=== PATIENT | female | born 1970 | race Caucasian/White ===

== ENCOUNTER → 2019-12-14 | Outpatient (CLI) | payer BC ==
[~2019-12-14] MED LIST: ASCO1TAB15 PO; LEVO75TA5 PO; MV-M1TAB25 PO; TRAZ-175 PO
[2019-12-14 14:21] LABS: BASOPHILS # (AUTO) 0.03 x10^3/uL (0-0.1); BASOPHILS % (AUTO) 0 % (0-1); EOSINOPHILS # (AUTO) 0.15 x10^3/uL (0-0.4); EOSINOPHILS % (AUTO) 2 % (1-7); LYMPHOCYTES % (AUTO) 33 % (22-44); MD NO; MEAN CORPUSCULAR HEMOGLOBIN 30.3 pg (27.0-34.8); MEAN CORPUSCULAR HGB CONC 33.2 g/dL (32.4-35.8); MEAN CORPUSCULAR VOLUME 91.1 fL (80-100); MEAN PLATELET VOLUME 7.5 fL (7.4-10.4); MONOCYTES # (AUTO) 0.37 x10^3/uL (0.2-0.8); MONOCYTES % (AUTO) 6 % (2-9); NEUTROPHILS # (AUTO) 4.02 x10^3/uL (1.8-6.8); NEUTROPHILS % (AUTO) 59 % (42-75); PLATELET COUNT 283 x10^3/uL (130-400); RED BLOOD COUNT 4.76 x10^6/uL (3.82-5.3); RED CELL DISTRIBUTION WIDTH 13.1 % (9.6-15.2)
[2019-12-14 14:24] LABS: MICROSCOPIC NOT IND
[2019-12-14 14:27] LABS: INTERNATIONAL NORMALIZED RATIO 0.93 (0.93-1.1); PROTHROMBIN TIME 9.8 Seconds (9.6-11.5)
[2019-12-14 14:28] LABS: CULTURE INDICATED? NO
[2019-12-14 14:29] LABS: ALANINE AMINOTRANSFERASE 14 U/L (12-78); ALBUMIN 3.8 g/dL (3.4-5.0); ANION GAP 7 mmol/L (5-15); CALCIUM 9.3 mg/dL (8.5-10.1); CHLORIDE 107 mmol/L (98-107)
[2019-12-14 14:32] LABS: ALKALINE PHOSPHATASE 55 U/L (45-117); BILIRUBIN,TOTAL 0.5 mg/dL (0.2-1.0); CREATININE 0.92 mg/dL (0.55-1.02); TOTAL PROTEIN 7.6 g/dL (6.4-8.2)
== END | disposition home or self-care (01) ==
LOC: STAR 12:48
PROVIDERS: ATTEND Orthopaedic Surgery Orthopaedic Surgery of the Spine
DX: Z01.818 Encounter for other preprocedural examination (principal)
CPT/HCPCS: 36415; 71046; 80053; 81003; 85025; 85610; 85730; 93005

== ENCOUNTER 2019-12-20 08:10 | Inpatient (IN) | payer BC ==
[~2019-12-20] VITALS: Ht 170.2 cm; Wt 99.2 kg
[~2019-12-20 08:10] MED LIST changes: +HEPARIN 1,000 UNITS/ML, 30ML ONE; +VANCOMYCIN 1,000 MG ONE
[2019-12-20 08:43] VITALS: BP 114/79
[2019-12-20] MEDS ORDERED: LACTATED RINGERS 1,000 ML IV SCH (08:46)
[2019-12-20] MEDS ORDERED: MIDAZOLAM 1 MG/ML, 2ML ONE (09:37)
[2019-12-20] MEDS ORDERED: FENTANYL PF 250 MCG/5ML ONE (09:37)
[2019-12-20] MEDS ORDERED: DEXAMETHASONE 4 MG/ML, 1ML ONE (10:08)
[2019-12-20] MEDS ORDERED: SUGAMMADEX 200 MG/2 ML IVPush ONE (10:08)
[2019-12-20] MEDS ORDERED: CEFAZOLIN 1,000 MG ONE (10:08)
[2019-12-20] MEDS ORDERED: SUCCINYLCHOLINE 20 MG/ML, 10ML ONE (10:08)
[2019-12-20] MEDS ORDERED: ROCURONIUM 10 MG/ML,10ML ONE (10:08)
[2019-12-20] MEDS ORDERED: CALCIUM CHLORIDE 10%, 10ML SYR ONE (10:08)
[2019-12-20] MEDS ORDERED: ONDANSETRON 2MG/ML, 2ML ONE (10:08)
[2019-12-20] MEDS ORDERED: PROPOFOL 10 MG/ML, 20ML ONE (10:08)
[2019-12-20] MEDS ORDERED: HEPARIN 1,000 UNITS/ML, 30ML IVPB ONE (10:54)
[2019-12-20] MEDS ORDERED: HEPARIN 1,000 UNITS/ML, 30ML ONE (12:01)
[2019-12-20] MEDS ORDERED: OXYcodone 5 MG/5 ML ORAL.SOL UDC ONE (12:56)
[2019-12-20] MEDS ORDERED: FENTANYL PF 100 MCG/2ML ONE (12:56)
[2019-12-20] MEDS ORDERED: HYDROmorphone 1 MG/ML, 1ML INJ ONE ×2 (12:56→13:37)
[2019-12-20] MEDS: FENTANYL PF 100 MCG/2ML IV PRN ×2 (12:57→13:10)
[2019-12-20] MEDS ORDERED: OXYcodone 5 MG/5 ML ORAL.SOL UDC PO PRN (13:00)
[2019-12-20] MEDS ORDERED: DIAZEPAM 5 MG/ML, 2ML IV PRN ×2 (13:00)
[2019-12-20] MEDS ORDERED: KETOROLAC 30 MG/1 ML IV PRN (13:00)
[2019-12-20] MEDS ORDERED: hydrALAzine 20 MG/ML, 1ML IV PRN (13:00)
[2019-12-20] MEDS ORDERED: MEPERIDINE/PF 25MG/0.5ML IVPush PRN (13:00)
[2019-12-20] MEDS ORDERED: METOCLOPRAMIDE 5 MG/ML, 2ML IV PRN (13:00)
[2019-12-20] MEDS ORDERED: ALBUTEROL SULFATE 2.5 MG/3 ML NPPB PRN (13:00)
[2019-12-20] MEDS ORDERED: LABETALOL 5MG/ML, 20ML IV PRN (13:00)
[2019-12-20] MEDS: HYDROmorphone 1 MG/ML, 1ML INJ IV PRN ×4 (13:00→13:50)
[2019-12-20] MEDS ORDERED: ONDANSETRON 2MG/ML, 2ML IVPush PRN (13:00)
[2019-12-20] MEDS ORDERED: PROMETHAZINE 25 MG/ML, 1ML IV PRN (13:00)
[2019-12-20] MEDS ORDERED: DIAZEPAM 5 MG/ML, 2ML ONE (13:08)
[2019-12-20] MEDS ORDERED: METHOCARBAMOL 1,000 MG in DEXTROSE 5% 100 ML IV ONE (13:30)
[2019-12-20] MEDS ORDERED: MAGNESIUM HYDROXIDE 8%, 30ML UDC PO PRN (16:30)
[2019-12-20] MEDS ORDERED: ONDANSETRON 2MG/ML, 2ML IV PRN (16:30)
[2019-12-20] MEDS ORDERED: PROMETHAZINE 25 MG/ML, 1ML IM PRN (16:30)
[2019-12-20] MEDS ORDERED: TRAZODONE 100MG TABLET PO PRN (16:30)
[2019-12-20] MEDS ORDERED: HYDROcodone/APAP 5/325 TABLET PO PRN (16:30)
[2019-12-20] MEDS ORDERED: BISACODYL 10 MG SUPP PR PRN (16:30)
[2019-12-20] MEDS: morphine SULFATE 10 MG/ML, 1ML IV PRN ×2 (16:36→22:12)
[2019-12-20] MEDS: D5%-0.9% NACL+KCL 20MEQ 1,000 ML IV SCH (17:34)
[2019-12-20] MEDS: CEFAZOLIN PMX 1GM/50ML 50 ML IVPB SCH (17:34)
[2019-12-20] MEDS: METOCLOPRAMIDE 5 MG/ML, 2ML IV SCH ×2 (17:34→22:30)
[2019-12-20 18:28] VITALS: BP 112/74
[2019-12-20] MEDS: HYDROcodone/APAP 10/325 MG TABLET PO PRN (19:19)
[2019-12-20] MEDS: METHOCARBAMOL 750 MG in DEXTROSE 5% 100 ML IV SCH (20:26)
[2019-12-20 23:21] VITALS: BP 115/73
[2019-12-21] MEDS: HYDROcodone/APAP 10/325 MG TABLET PO PRN ×5 (00:09→19:34)
[2019-12-21] MEDS: CEFAZOLIN PMX 1GM/50ML 50 ML IVPB SCH (02:00)
[2019-12-21 04:02] VITALS: BP 96/54
[2019-12-21] MEDS: METOCLOPRAMIDE 5 MG/ML, 2ML IV SCH ×3 (04:30→17:55)
[2019-12-21 05:32] LABS: ANION GAP 4 mmol/L (5-15); CALCIUM 7.8 mg/dL (8.5-10.1); CHLORIDE 111 mmol/L (98-107); CREATININE 0.63 mg/dL (0.55-1.02)
[2019-12-21] MEDS: METHOCARBAMOL 750 MG in DEXTROSE 5% 100 ML IV SCH ×3 (05:38→21:55)
[2019-12-21] MEDS: D5%-0.9% NACL+KCL 20MEQ 1,000 ML IV SCH ×2 (05:38→19:35)
[2019-12-21] MEDS: LEVOTHYROXINE 75 MCG TABLET PO SCH (05:38)
[2019-12-21 07:44] VITALS: BP 90/57
[2019-12-21 14:36] VITALS: BP 103/69
[2019-12-21 19:09] VITALS: BP 100/65
[2019-12-22] MEDS: METOCLOPRAMIDE 5 MG/ML, 2ML IV SCH ×3 (00:13→07:32)
[2019-12-22] MEDS: HYDROcodone/APAP 10/325 MG TABLET PO PRN ×6 (00:13→22:45)
[2019-12-22 00:59] VITALS: BP 113/73
[2019-12-22 05:35] LABS: ANION GAP 4 mmol/L (5-15); CALCIUM 7.8 mg/dL (8.5-10.1); CHLORIDE 109 mmol/L (98-107); CREATININE 0.69 mg/dL (0.55-1.02)
[2019-12-22] MEDS: LEVOTHYROXINE 75 MCG TABLET PO SCH (05:54)
[2019-12-22] MEDS: METHOCARBAMOL 750 MG in DEXTROSE 5% 100 ML IV SCH ×2 (05:54→13:13)
[2019-12-22] MEDS: D5%-0.9% NACL+KCL 20MEQ 1,000 ML IV SCH ×2 (06:00→14:32)
[2019-12-22 06:51] VITALS: BP 101/68
[2019-12-22] MEDS: SENNA/DOCUSATE TABLET PO SCH (08:32)
[2019-12-22 13:25] VITALS: BP 110/75
[2019-12-22 18:32] VITALS: BP 113/76
[2019-12-22] MEDS: METHOCARBAMOL 750 MG TABLET PO SCH (20:11)
[2019-12-23] MEDS: D5%-0.9% NACL+KCL 20MEQ 1,000 ML IV SCH ×2 (01:30→11:08)
[2019-12-23] MEDS: HYDROcodone/APAP 10/325 MG TABLET PO PRN ×3 (02:47→14:42)
[2019-12-23 03:33] VITALS: BP 103/71
[2019-12-23] MEDS: METHOCARBAMOL 750 MG TABLET PO SCH ×2 (05:08→12:29)
[2019-12-23] MEDS: LEVOTHYROXINE 75 MCG TABLET PO SCH (05:08)
[2019-12-23 07:18] VITALS: BP 94/62
[2019-12-23] MEDS: SENNA/DOCUSATE TABLET PO SCH (08:50)
[2019-12-23 12:22] VITALS: BP 112/70
[2019-12-23] MEDS ORDERED: HYDR-36 PO (14:51)
[2019-12-23] MEDS ORDERED: METH750T2 PO (14:52)
== END 2019-12-23 15:24 | disposition home or self-care (01) | DRG 459 ==
LOC: ORIP 08:10 → 4NE 15:23 → DCLOUNGE 12-23 15:11
PROVIDERS: ADMIT Orthopaedic Surgery Orthopaedic Surgery of the Spine; ATTEND Orthopaedic Surgery Orthopaedic Surgery of the Spine
PROC: 06QD0ZZ Repair Left Common Iliac Vein, Open Approach (ICD-10-PCS; 2019-12-20)
PROC: 03HY32Z Insertion of Monitoring Device into Upper Artery, Percutaneous Approach (ICD-10-PCS; 2019-12-20)
PROC: 30233N0 Transfusion of Autologous Red Blood Cells into Peripheral Vein, Percutaneous Approach (ICD-10-PCS; 2019-12-20)
PROC: 30233K1 Transfusion of Nonautologous Frozen Plasma into Peripheral Vein, Percutaneous Approach (ICD-10-PCS; 2019-12-20)
PROC: 30233N1 Transfusion of Nonautologous Red Blood Cells into Peripheral Vein, Percutaneous Approach (ICD-10-PCS; 2019-12-20)
PROC: 30233R1 Transfusion of Nonautologous Platelets into Peripheral Vein, Percutaneous Approach (ICD-10-PCS; 2019-12-20)
PROC: 0SG30A0 Fusion of Lumbosacral Joint with Interbody Fusion Device, Anterior Approach, Anterior Column, Open Approach (ICD-10-PCS; principal; 2019-12-20 11:00)
DX: M43.17 Spondylolisthesis, lumbosacral region (principal); S35.515A Injury of left iliac vein, initial encounter; M54.17 Radiculopathy, lumbosacral region; E03.9 Hypothyroidism, unspecified; F32.9 Major depressive disorder, single episode, unspecified; Z90.710 Acquired absence of both cervix and uterus; M19.90 Unspecified osteoarthritis, unspecified site; G89.4 Chronic pain syndrome; Z82.49 Family history of ischemic heart disease and other diseases of the circulatory system; Y83.8 Other surgical procedures as the cause of abnormal reaction of the patient, or of later complication, without mention of misadventure at the time of the procedure; Y92.234 Operating room of hospital as the place of occurrence of the external cause; Y93.89 Activity, other specified; Y99.8 Other external cause status; M48.07 Spinal stenosis, lumbosacral region; Z88.8 Allergy status to other drugs, medicaments and biological substances
CPT/HCPCS: 36415; 72100; 74018; 80048; 85014; 85018; 86850; 86900; 86923; C1776; G0378; J0690; J1100; J1170; J1644; J2250; J2405; J2704; J3010; J3360; J3370; C1760; C1762; J0330; J2270; J2765; J2800; J3480; J7120; P9016; P9017; P9035

== ENCOUNTER 2019-12-24 09:22 | Emergency (ER) | payer BC ==
[~2019-12-24] VITALS: Ht 170.2 cm; Wt 98.3 kg
[~2019-12-24 09:22] MED LIST changes: -HEPARIN 1,000 UNITS/ML, 30ML ONE; +HYDR-36 PO; +METH750T2 PO; -VANCOMYCIN 1,000 MG ONE
[2019-12-24 09:44] VITALS: BP 105/71
--- NOTE | 2019-12-24 10:10 | NUR ---
THIS IS A 49 YEAR OLD FEMALE WHO LEFT CALF PAIN AND PARESTHESIAS IN FOOT. BACK SURGERY LAST THURSDAY SENT BY DR. TEJADA'Lalita FOR DVT RULE OUT.
--- NOTE | 2019-12-24 10:39 | NUR ---
ULTRA SOUND IN ROOM
--- NOTE | 2019-12-24 11:35 | NUR ---
Patient/Caregiver given discharge instructions and they have confirmed that they understand the instructions. Patient ambulatory with steady gait.
== END 2019-12-24 11:36 | disposition home or self-care (01) ==
LOC: ED 09:58
DX: S86.912A Strain of unspecified muscle(s) and tendon(s) at lower leg level, left leg, initial encounter (principal); X58.XXXA Exposure to other specified factors, initial encounter; Y93.89 Activity, other specified; Y92.89 Other specified places as the place of occurrence of the external cause; Y99.8 Other external cause status
CPT/HCPCS: 99284

== ENCOUNTER 2019-12-28 05:34 | Inpatient (IN) | payer BC ==
[~2019-12-28] VITALS: Ht 170.2 cm; Wt 100.0 kg
[2019-12-28 06:19] VITALS: BP 102/75
[2019-12-28] MEDS ORDERED: VANCOMYCIN 1,000 MG ONE (06:33)
[2019-12-28] MEDS ORDERED: BUPIVACAINE/PF 0.25% ONE (06:33)
[2019-12-28] MEDS ORDERED: THROMBIN 5,000 UNIT VIAL TP ONE (06:33)
[2019-12-28] MEDS ORDERED: EPINEPHRINE 1 MG/ML, 1ML ONE (06:34)
[2019-12-28] MEDS ORDERED: LIDOCAINE/PF 0.5% ,50ML ONE (06:34)
[2019-12-28] MEDS ORDERED: FENTANYL PF 250 MCG/5ML ONE (07:07)
[2019-12-28] MEDS ORDERED: MIDAZOLAM 1 MG/ML, 2ML ONE (07:07)
[2019-12-28] MEDS ORDERED: SUCCINYLCHOLINE 20 MG/ML, 10ML ONE (07:47)
[2019-12-28] MEDS ORDERED: ROCURONIUM 10MG/ML,5ML ONE (07:47)
[2019-12-28] MEDS ORDERED: CEFAZOLIN 1,000 MG ONE (07:47)
[2019-12-28] MEDS ORDERED: ONDANSETRON 2MG/ML, 2ML ONE (07:47)
[2019-12-28] MEDS ORDERED: DEXAMETHASONE 4 MG/ML, 1ML ONE (07:47)
[2019-12-28] MEDS ORDERED: PROPOFOL 10 MG/ML, 20ML ONE (07:47)
[2019-12-28] MEDS ORDERED: HEPARIN 1,000 UNITS/ML, 30ML ONE (07:58)
[2019-12-28] MEDS ORDERED: hydrALAzine 20 MG/ML, 1ML IV PRN (09:00)
[2019-12-28] MEDS ORDERED: OXYcodone 5 MG/5 ML ORAL.SOL UDC PO PRN (09:00)
[2019-12-28] MEDS ORDERED: METOCLOPRAMIDE 5 MG/ML, 2ML IV PRN (09:00)
[2019-12-28] MEDS ORDERED: FENTANYL PF 100 MCG/2ML IV PRN (09:00)
[2019-12-28] MEDS ORDERED: ONDANSETRON 2MG/ML, 2ML IVPush PRN (09:00)
[2019-12-28] MEDS ORDERED: PROMETHAZINE 25 MG/ML, 1ML IV PRN (09:00)
[2019-12-28] MEDS ORDERED: KETOROLAC 30 MG/1 ML IV PRN (09:00)
[2019-12-28] MEDS ORDERED: LABETALOL 5MG/ML, 20ML IV PRN (09:00)
[2019-12-28] MEDS ORDERED: DIAZEPAM 5 MG/ML, 2ML IV PRN ×2 (09:00)
[2019-12-28] MEDS ORDERED: ALBUTEROL SULFATE 2.5 MG/3 ML NPPB PRN (09:00)
[2019-12-28] MEDS ORDERED: METHOCARBAMOL 1,000 MG in DEXTROSE 5% 100 ML IV ONE (11:00)
[2019-12-28] MEDS ORDERED: HYDROmorphone 1 MG/ML, 1ML INJ ONE (11:06)
[2019-12-28] MEDS ORDERED: DIAZEPAM 5 MG/ML, 2ML ONE (11:06)
[2019-12-28] MEDS ORDERED: OXYcodone 5 MG/5 ML ORAL.SOL UDC ONE (11:06)
[2019-12-28] MEDS: HYDROmorphone 1 MG/ML, 1ML INJ IV PRN ×3 (11:30→12:00)
[2019-12-28] MEDS ORDERED: MEPERIDINE/PF 25MG/ML,1ML ONE (12:29)
[2019-12-28] MEDS: MEPERIDINE/PF 25MG/0.5ML IVPush PRN ×2 (12:30→13:15)
[2019-12-28] MEDS ORDERED: HYDROcodone/APAP 10/325 MG TABLET ONE (15:16)
[2019-12-28] MEDS: HYDROcodone/APAP 10/325 MG TABLET PO PRN ×2 (15:19→19:30)
[2019-12-28] MEDS ORDERED: METHOCARBAMOL 750 MG TABLET PO PRN (17:30)
[2019-12-28] MEDS ORDERED: DIPHENHYDRAMINE 50 MG/ML, 1ML IVPush PRN (17:30)
[2019-12-28] MEDS ORDERED: BISACODYL 10 MG SUPP PR PRN (17:30)
[2019-12-28] MEDS ORDERED: ONDANSETRON 2MG/ML, 2ML IV PRN (17:30)
[2019-12-28] MEDS ORDERED: TRAZODONE 100MG TABLET PO PRN (17:30)
[2019-12-28] MEDS ORDERED: MAGNESIUM HYDROXIDE 8%, 30ML UDC PO PRN (17:30)
[2019-12-28] MEDS ORDERED: HYDROcodone/APAP 5/325 TABLET PO PRN (17:30)
[2019-12-28] MEDS ORDERED: PROMETHAZINE 25 MG/ML, 1ML IM PRN (17:30)
[2019-12-28] MEDS ORDERED: DIPHENHYDRAMINE 50 MG/ML, 1ML IM PRN (17:30)
[2019-12-28] MEDS ORDERED: LORazepam 1MG TABLET PO PRN (17:30)
[2019-12-28] MEDS ORDERED: HYDROcodone/APAP 10/325 MG TABLET PO PRN (17:30)
[2019-12-28] MEDS ORDERED: PHARMACY MAY ADJ FOR RENAL FX MC PRN (19:30)
[2019-12-28] MEDS: D5%-0.9% NACL+KCL 20MEQ 1,000 ML IV SCH (20:00)
[2019-12-28] MEDS: CEFAZOLIN PMX 1GM/50ML 50 ML IVPB SCH (20:00)
[2019-12-28] MEDS: METHOCARBAMOL 750 MG in DEXTROSE 5% 100 ML IV SCH (20:30)
[2019-12-28] MEDS: SENNA/DOCUSATE TABLET PO SCH (21:00)
[2019-12-29] MEDS: HYDROmorphone 2 MG/ML, 1ML IV PRN ×3 (01:07→15:37)
[2019-12-29] MEDS: CEFAZOLIN PMX 1GM/50ML 50 ML IVPB SCH (01:08)
[2019-12-29 02:01] VITALS: BP 100/63
[2019-12-29] MEDS: D5%-0.9% NACL+KCL 20MEQ 1,000 ML IV SCH ×3 (03:30→22:41)
[2019-12-29] MEDS: LEVOTHYROXINE 75 MCG TABLET PO SCH (04:50)
[2019-12-29] MEDS: HYDROcodone/APAP 10/325 MG TABLET PO PRN ×3 (04:51→13:28)
[2019-12-29 05:44] LABS: BASOPHILS # (AUTO) 0.03 x10^3/uL (0-0.1); BASOPHILS % (AUTO) 0 % (0-1); EOSINOPHILS # (AUTO) 0.09 x10^3/uL (0-0.4); EOSINOPHILS % (AUTO) 1 % (1-7); LYMPHOCYTES # (AUTO) 1.63 x10^3/uL (1-3.4); LYMPHOCYTES % (AUTO) 22 % (22-44); MD NO; MEAN CORPUSCULAR HEMOGLOBIN 29.9 pg (27.0-34.8); MEAN CORPUSCULAR HGB CONC 33.3 g/dL (32.4-35.8); MEAN CORPUSCULAR VOLUME 89.8 fL (80-100); MONOCYTES # (AUTO) 0.71 x10^3/uL (0.2-0.8); MONOCYTES % (AUTO) 9 % (2-9); NEUTROPHILS # (AUTO) 5.16 x10^3/uL (1.8-6.8); NEUTROPHILS % (AUTO) 68 % (42-75); PLATELET COUNT 284 x10^3/uL (130-400); RED BLOOD COUNT 3.96 x10^6/uL (3.82-5.3); RED CELL DISTRIBUTION WIDTH 14.2 % (9.6-15.2)
[2019-12-29 05:45] VITALS: BP 99/68
[2019-12-29] MEDS: METHOCARBAMOL 750 MG in DEXTROSE 5% 100 ML IV SCH ×3 (05:54→22:41)
[2019-12-29 05:59] LABS: ANION GAP 3 mmol/L (5-15); CHLORIDE 109 mmol/L (98-107); CREATININE 0.68 mg/dL (0.55-1.02)
[2019-12-29 07:05] VITALS: BP 96/66
[2019-12-29] MEDS: SENNA/DOCUSATE TABLET PO SCH ×2 (09:00→21:35)
[2019-12-29 13:05] VITALS: BP 97/64
[2019-12-29] MEDS ORDERED: OXYcodone IR 5MG TABLET PO PRN (17:00)
[2019-12-29] MEDS: DEXAMETHASONE 4 MG/ML, 1ML IVPush SCH ×2 (17:04→22:42)
[2019-12-29] MEDS: OXYcodone IR 5MG TABLET PO PRN ×2 (17:10→21:36)
[2019-12-29] MEDS ORDERED: SODIUM CHLORIDE 0.9% 1,000ML IV PRN (17:30)
[2019-12-29 21:08] VITALS: BP 107/71
[2019-12-29] MEDS: ACETAMINOPHEN 500 MG TABLET PO SCH (21:35)
[2019-12-30 02:16] VITALS: BP 106/71
[2019-12-30] MEDS: ACETAMINOPHEN 500 MG TABLET PO SCH ×4 (02:47→20:31)
[2019-12-30] MEDS: OXYcodone IR 5MG TABLET PO PRN ×3 (02:47→13:00)
[2019-12-30] MEDS ORDERED: CALCIUM CARBONATE 500 MG TAB.CHEW PO PRN (03:00)
[2019-12-30] MEDS: METHOCARBAMOL 750 MG in DEXTROSE 5% 100 ML IV SCH ×2 (05:29→14:03)
[2019-12-30] MEDS: DEXAMETHASONE 4 MG/ML, 1ML IVPush SCH ×4 (05:29→23:00)
[2019-12-30] MEDS: LEVOTHYROXINE 75 MCG TABLET PO SCH (05:30)
[2019-12-30 06:11] LABS: BASOPHILS # (AUTO) 0.01 x10^3/uL (0-0.1); BASOPHILS % (AUTO) 0 % (0-1); EOSINOPHILS # (AUTO) 0.03 x10^3/uL (0-0.4); EOSINOPHILS % (AUTO) 0 % (1-7); LYMPHOCYTES # (AUTO) 0.59 x10^3/uL (1-3.4); LYMPHOCYTES % (AUTO) 7 % (22-44); MD NO; MEAN CORPUSCULAR HEMOGLOBIN 29.8 pg (27.0-34.8); MEAN CORPUSCULAR HGB CONC 33.3 g/dL (32.4-35.8); MEAN CORPUSCULAR VOLUME 89.5 fL (80-100); MEAN PLATELET VOLUME 7.2 fL (7.4-10.4); MONOCYTES # (AUTO) 0.35 x10^3/uL (0.2-0.8); MONOCYTES % (AUTO) 4 % (2-9); NEUTROPHILS % (AUTO) 89 % (42-75); PLATELET COUNT 312 x10^3/uL (130-400); RED BLOOD COUNT 4.23 x10^6/uL (3.82-5.3); RED CELL DISTRIBUTION WIDTH 14.4 % (9.6-15.2)
[2019-12-30 06:22] LABS: ANION GAP 5 mmol/L (5-15); CALCIUM 8.5 mg/dL (8.5-10.1); CHLORIDE 107 mmol/L (98-107)
[2019-12-30 06:25] LABS: CREATININE 0.57 mg/dL (0.55-1.02)
[2019-12-30 07:23] VITALS: BP 105/72
[2019-12-30] MEDS: METHOCARBAMOL 750 MG TABLET PO SCH ×2 (07:42→20:31)
[2019-12-30] MEDS: SENNA/DOCUSATE TABLET PO SCH ×2 (08:33→20:31)
[2019-12-30 10:20] LABS: TROPONIN I < 0.015 ng/mL (0.000-0.045)
[2019-12-30] MEDS ORDERED: OMNIPAQUE 350 MG/ML, 100ML BOTTLE ONE (11:30)
[2019-12-30] MEDS: D5%-0.9% NACL+KCL 20MEQ 1,000 ML IV SCH ×2 (13:00→20:32)
[2019-12-30 13:49] VITALS: BP 116/72
[2019-12-30 21:59] VITALS: BP 111/75
[2019-12-31 00:46] VITALS: BP 124/84
[2019-12-31] MEDS: DIPHENHYDRAMINE 25 MG CAPSULE PO PRN ×2 (01:57→20:54)
[2019-12-31] MEDS: ACETAMINOPHEN 500 MG TABLET PO SCH ×4 (02:59→23:07)
[2019-12-31] MEDS: METHOCARBAMOL 750 MG TABLET PO SCH ×3 (04:33→20:53)
[2019-12-31] MEDS: LEVOTHYROXINE 75 MCG TABLET PO SCH (06:06)
[2019-12-31] MEDS: DEXAMETHASONE 4 MG/ML, 1ML IVPush SCH ×4 (06:06→23:07)
[2019-12-31 06:40] VITALS: BP 100/64
[2019-12-31] MEDS: D5%-0.9% NACL+KCL 20MEQ 1,000 ML IV SCH ×2 (09:09→17:16)
[2019-12-31] MEDS: SENNA/DOCUSATE TABLET PO SCH ×2 (09:16→20:56)
[2019-12-31 12:24] VITALS: BP 105/69
[2019-12-31 20:00] VITALS: BP 105/70
[2019-12-31] MEDS: OXYcodone IR 5MG TABLET PO PRN (20:54)
[2020-01-01 01:20] VITALS: BP 104/71
[2020-01-01] MEDS: D5%-0.9% NACL+KCL 20MEQ 1,000 ML IV SCH (05:00)
[2020-01-01] MEDS: LEVOTHYROXINE 75 MCG TABLET PO SCH (05:22)
[2020-01-01] MEDS: METHOCARBAMOL 750 MG TABLET PO SCH ×2 (05:22→14:09)
[2020-01-01] MEDS: ACETAMINOPHEN 500 MG TABLET PO SCH ×2 (05:22→12:34)
[2020-01-01] MEDS: DEXAMETHASONE 4 MG/ML, 1ML IVPush SCH ×2 (05:22→12:28)
[2020-01-01] MEDS: OXYcodone IR 5MG TABLET PO PRN ×2 (05:34→14:09)
[2020-01-01 06:30] LABS: FREE T4 (FREE THYROXINE) 1.14 ng/dL (0.76-1.46)
[2020-01-01 06:48] VITALS: BP 99/63
[2020-01-01] MEDS: SENNA/DOCUSATE TABLET PO SCH (08:00)
[2020-01-01 13:17] VITALS: BP 102/71
[2020-01-01] MEDS ORDERED: OXYC10TA6 PO (13:22)
== END 2020-01-01 14:34 | disposition home or self-care (01) | DRG 460 ==
LOC: ORIP 05:34 → 4NE 18:50
PROVIDERS: ADMIT Orthopaedic Surgery Orthopaedic Surgery of the Spine; ATTEND Orthopaedic Surgery Orthopaedic Surgery of the Spine
PROC: 0SG3071 Fusion of Lumbosacral Joint with Autologous Tissue Substitute, Posterior Approach, Posterior Column, Open Approach (ICD-10-PCS; principal; 2019-12-28 07:30)
DX: M48.07 Spinal stenosis, lumbosacral region (principal); E04.1 Nontoxic single thyroid nodule; K21.9 Gastro-esophageal reflux disease without esophagitis; M54.17 Radiculopathy, lumbosacral region; M43.16 Spondylolisthesis, lumbar region; Z90.710 Acquired absence of both cervix and uterus
CPT/HCPCS: 36415; 71275; 72100; 80048; 84439; 84443; 84484; 85025; 85379; 86850; 86900; 93005; 93970; C1713; G0378; J0171; J0690; J1100; J1170; J1644; J2001; J2175; J2250; J2405; J2704; J3010; J3360; J3370; J3490; Q9967; J0330; J2800; J3480; Q0163

== ENCOUNTER 2020-01-16 17:03 | Emergency (ER) | payer BC ==
[~2020-01-16] VITALS: Ht 170.2 cm; Wt 94.1 kg
[~2020-01-16 17:03] MED LIST changes: +OXYC10TA6 PO
[2020-01-16 17:09] VITALS: BP 112/71
--- NOTE | 2020-01-16 19:29 | NUR ---
PT. TO ROOM FROM LOBBY AT THIS TIME.
== END 2020-01-16 19:45 | disposition home or self-care (01) ==
LOC: ED 19:35
DX: M79.662 Pain in left lower leg (principal); M25.562 Pain in left knee
CPT/HCPCS: 99284

== ENCOUNTER 2020-02-02 05:14 | Inpatient (IN) | payer BC ==
[~2020-02-02] VITALS: Ht 170.2 cm; Wt 91.0 kg
[2020-02-02 05:43] VITALS: BP 118/80
[2020-02-02] MEDS ORDERED: LACTATED RINGERS 1,000 ML IV SCH (05:47)
[2020-02-02] MEDS ORDERED: OXYC5TAB3 PO (06:09)
[2020-02-02] MEDS ORDERED: METH750T2 PO (06:09)
[2020-02-02] MEDS ORDERED: LIDOCAINE/PF 0.5% ,50ML ONE (06:17)
[2020-02-02] MEDS ORDERED: VANCOMYCIN 1,000 MG ONE (06:17)
[2020-02-02] MEDS ORDERED: EPINEPHRINE 1 MG/ML, 1ML ONE (06:17)
[2020-02-02] MEDS ORDERED: BUPIVACAINE/PF 0.25% ONE (06:17)
[2020-02-02] MEDS ORDERED: MIDAZOLAM 1 MG/ML, 2ML ONE (07:08)
[2020-02-02] MEDS ORDERED: FENTANYL PF 250 MCG/5ML ONE (07:08)
[2020-02-02] MEDS ORDERED: DIAZEPAM 5 MG/ML, 2ML ONE (09:41)
[2020-02-02] MEDS ORDERED: HYDROmorphone 1 MG/ML, 1ML INJ ONE ×2 (09:41→10:22)
[2020-02-02] MEDS ORDERED: FENTANYL PF 100 MCG/2ML ONE ×2 (09:41→09:59)
[2020-02-02] MEDS ORDERED: OXYcodone 5 MG/5 ML ORAL.SOL UDC ONE (09:42)
[2020-02-02] MEDS: FENTANYL PF 100 MCG/2ML IV PRN ×4 (09:45→10:27)
[2020-02-02] MEDS ORDERED: METHOCARBAMOL 1,000 MG in DEXTROSE 5% 100 ML IV ONE (09:47)
[2020-02-02] MEDS: HYDROmorphone 1 MG/ML, 1ML INJ IV PRN ×4 (09:56→10:27)
[2020-02-02] MEDS ORDERED: MEPERIDINE/PF 25MG/0.5ML IVPush PRN (10:00)
[2020-02-02] MEDS ORDERED: DIAZEPAM 5 MG/ML, 2ML IV PRN ×2 (10:00)
[2020-02-02] MEDS ORDERED: hydrALAzine 20 MG/ML, 1ML IV PRN (10:00)
[2020-02-02] MEDS ORDERED: PROMETHAZINE 25 MG/ML, 1ML IV PRN (10:00)
[2020-02-02] MEDS ORDERED: KETOROLAC 30 MG/1 ML IV PRN (10:00)
[2020-02-02] MEDS ORDERED: ALBUTEROL SULFATE 2.5 MG/3 ML NPPB PRN (10:00)
[2020-02-02] MEDS ORDERED: METOCLOPRAMIDE 5 MG/ML, 2ML IV PRN (10:00)
[2020-02-02] MEDS ORDERED: OXYcodone 5 MG/5 ML ORAL.SOL UDC PO PRN (10:00)
[2020-02-02] MEDS ORDERED: ONDANSETRON 2MG/ML, 2ML IVPush PRN (10:00)
[2020-02-02] MEDS ORDERED: LABETALOL 5MG/ML, 20ML IV PRN (10:00)
[2020-02-02] MEDS ORDERED: DIAZEPAM 5 MG/ML, 2ML IV ONE (11:00)
[2020-02-02 11:15] VITALS: BP 93/67
[2020-02-02] MEDS ORDERED: PROMETHAZINE 25 MG/ML, 1ML IM PRN (12:00)
[2020-02-02] MEDS ORDERED: BISACODYL 10 MG SUPP PR PRN (12:00)
[2020-02-02] MEDS ORDERED: morphine SULFATE 10 MG/ML, 1ML IV PRN (12:00)
[2020-02-02] MEDS ORDERED: MAGNESIUM HYDROXIDE 8%, 30ML UDC PO PRN (12:00)
[2020-02-02] MEDS: OXYcodone IR 5MG TABLET PO PRN ×3 (13:49→22:19)
[2020-02-02] MEDS: D5%-0.9% NACL+KCL 20MEQ 1,000 ML IV SCH ×2 (13:49→22:00)
[2020-02-02 14:00] VITALS: BP 100/70
[2020-02-02] MEDS ORDERED: DEXAMETHASONE 4 MG/ML, 1ML ONE (14:21)
[2020-02-02] MEDS ORDERED: SUCCINYLCHOLINE 20 MG/ML, 10ML ONE (14:21)
[2020-02-02] MEDS ORDERED: ONDANSETRON 2MG/ML, 2ML ONE (14:21)
[2020-02-02] MEDS ORDERED: SUGAMMADEX 200 MG/2 ML IVPush ONE (14:21)
[2020-02-02] MEDS ORDERED: ROCURONIUM 10MG/ML,5ML ONE (14:21)
[2020-02-02] MEDS ORDERED: PROPOFOL 10 MG/ML, 20ML ONE (14:21)
[2020-02-02] MEDS ORDERED: CEFAZOLIN 1,000 MG ONE (14:21)
[2020-02-02] MEDS: CEFAZOLIN PMX 1GM/50ML 50 ML IVPB SCH ×2 (15:07→23:01)
[2020-02-02] MEDS: ONDANSETRON 2MG/ML, 2ML IV PRN (15:07)
[2020-02-02] MEDS: METHOCARBAMOL 750 MG TABLET PO SCH ×2 (16:02→21:40)
[2020-02-02] MEDS: SENNA/DOCUSATE TABLET PO SCH ×2 (16:02→21:40)
[2020-02-02 19:44] VITALS: BP 91/59
[2020-02-03 00:30] VITALS: BP 93/61
[2020-02-03 04:10] VITALS: BP 95/62
[2020-02-03] MEDS: OXYcodone IR 5MG TABLET PO PRN ×5 (04:22→21:42)
[2020-02-03 05:16] LABS: BASOPHILS # (AUTO) 0.02 x10^3/uL (0-0.1); BASOPHILS % (AUTO) 0 % (0-1); EOSINOPHILS # (AUTO) 0.11 x10^3/uL (0-0.4); EOSINOPHILS % (AUTO) 2 % (1-7); LYMPHOCYTES # (AUTO) 1.67 x10^3/uL (1-3.4); LYMPHOCYTES % (AUTO) 25 % (22-44); MD NO; MEAN CORPUSCULAR HEMOGLOBIN 29.8 pg (27.0-34.8); MEAN CORPUSCULAR HGB CONC 32.6 g/dL (32.4-35.8); MEAN CORPUSCULAR VOLUME 91.5 fL (80-100); MEAN PLATELET VOLUME 6.8 fL (7.4-10.4); MONOCYTES # (AUTO) 0.51 x10^3/uL (0.2-0.8); MONOCYTES % (AUTO) 8 % (2-9); NEUTROPHILS # (AUTO) 4.42 x10^3/uL (1.8-6.8); NEUTROPHILS % (AUTO) 66 % (42-75); PLATELET COUNT 251 x10^3/uL (130-400); RED BLOOD COUNT 3.93 x10^6/uL (3.82-5.3); RED CELL DISTRIBUTION WIDTH 14.5 % (9.6-15.2)
[2020-02-03 05:19] LABS: ANION GAP 5 mmol/L (5-15); CALCIUM 7.8 mg/dL (8.5-10.1); CHLORIDE 112 mmol/L (98-107); CREATININE 0.75 mg/dL (0.55-1.02)
[2020-02-03] MEDS: LEVOTHYROXINE 75 MCG TABLET PO SCH (07:07)
[2020-02-03 07:30] VITALS: BP 101/66
[2020-02-03] MEDS: D5%-0.9% NACL+KCL 20MEQ 1,000 ML IV SCH ×2 (07:36→16:55)
[2020-02-03] MEDS: ONDANSETRON 2MG/ML, 2ML IV PRN (08:37)
[2020-02-03] MEDS: SENNA/DOCUSATE TABLET PO SCH ×3 (09:34→21:41)
[2020-02-03] MEDS: METHOCARBAMOL 750 MG TABLET PO SCH ×2 (09:34→16:55)
[2020-02-03 13:11] VITALS: BP 101/68
[2020-02-03 21:15] VITALS: BP 97/65
[2020-02-04] MEDS: METHOCARBAMOL 750 MG TABLET PO SCH ×2 (02:04→11:44)
[2020-02-04 02:13] VITALS: BP 99/65
[2020-02-04] MEDS: D5%-0.9% NACL+KCL 20MEQ 1,000 ML IV SCH ×2 (04:00→14:00)
[2020-02-04] MEDS: OXYcodone IR 5MG TABLET PO PRN ×2 (04:04→08:29)
[2020-02-04 05:47] LABS: BASOPHILS # (AUTO) 0.02 x10^3/uL (0-0.1); BASOPHILS % (AUTO) 0 % (0-1); EOSINOPHILS # (AUTO) 0.14 x10^3/uL (0-0.4); EOSINOPHILS % (AUTO) 2 % (1-7); LYMPHOCYTES # (AUTO) 1.95 x10^3/uL (1-3.4); LYMPHOCYTES % (AUTO) 33 % (22-44); MD NO; MEAN CORPUSCULAR HEMOGLOBIN 30.1 pg (27.0-34.8); MEAN CORPUSCULAR HGB CONC 33.2 g/dL (32.4-35.8); MEAN CORPUSCULAR VOLUME 90.6 fL (80-100); MONOCYTES # (AUTO) 0.54 x10^3/uL (0.2-0.8); MONOCYTES % (AUTO) 9 % (2-9); NEUTROPHILS # (AUTO) 3.28 x10^3/uL (1.8-6.8); NEUTROPHILS % (AUTO) 55 % (42-75); PLATELET COUNT 239 x10^3/uL (130-400); RED BLOOD COUNT 3.81 x10^6/uL (3.82-5.3)
[2020-02-04 05:56] LABS: ANION GAP 5 mmol/L (5-15); CALCIUM 8.4 mg/dL (8.5-10.1); CHLORIDE 109 mmol/L (98-107)
[2020-02-04 05:57] LABS: CREATININE 0.57 mg/dL (0.55-1.02)
[2020-02-04] MEDS: LEVOTHYROXINE 75 MCG TABLET PO SCH (06:16)
[2020-02-04 06:29] VITALS: BP 100/65
[2020-02-04] MEDS ORDERED: OXYC5CAP2 PO (08:25)
[2020-02-04] MEDS: SENNA/DOCUSATE TABLET PO SCH (08:28)
[2020-02-04 12:47] VITALS: BP 11/68
== END 2020-02-04 15:00 | disposition home or self-care (01) | DRG 517 ==
LOC: ORIP 05:14 → 4NE 11:09
PROVIDERS: ADMIT Orthopaedic Surgery Orthopaedic Surgery of the Spine; ATTEND Orthopaedic Surgery Orthopaedic Surgery of the Spine
PROC: 01NB0ZZ Release Lumbar Nerve, Open Approach (ICD-10-PCS; 2020-02-02)
PROC: 0S9 Lower Joints, Drainage (ICD-10-PCS; principal; 2020-02-02 07:00)
DX: M48.07 Spinal stenosis, lumbosacral region (principal); M54.17 Radiculopathy, lumbosacral region
CPT/HCPCS: 36415; 72100; 80048; 85025; 87015; 87070; 87075; 87102; 87116; 87205; 87206; G0378; J0171; J0690; J1100; J1170; J2001; J2250; J2405; J2704; J3010; J3360; J3370; J3490; J0330; J2800; J3480; J7120

== ENCOUNTER 2021-05-13 21:18 | Emergency (ER) | payer BC, OTHER ==
[~2021-05-13] VITALS: Ht 170.2 cm; Wt 95.8 kg
[~2021-05-13 21:18] MED LIST changes: +HYDR-3248 PO; -HYDR-36 PO; +METH-640 PO; -METH750T2 PO; +OXYC5CAP2 PO; +OXYC5TAB98 PO
[2021-05-13] MEDS ORDERED: HYDROmorphone 1 MG/ML, 1ML INJ ONE (22:14)
--- NOTE | 2021-05-13 22:27 | NUR ---
PT MEDICATED PER EMAR, PLACED ON CONTINUOUS PULSE OX. NO OTHER NEEDS AT THIS TIME
[2021-05-13] MEDS ORDERED: HYDROmorphone 1 MG/ML, 1ML INJ IM ONE (22:30)
[2021-05-13 23:24] VITALS: BP 125/74
== END 2021-05-13 23:36 | disposition home or self-care (01) ==
LOC: ED 21:48
DX: M25.512 Pain in left shoulder (principal)
CPT/HCPCS: 73030; 96372; 99283; J1170